=== PATIENT | male | born 1975 | race Caucasian/White ===

== ENCOUNTER 2016-04-30 17:07 | Inpatient (IN) | payer OTHER ==
[~2016-04-30] VITALS: Ht 175.3 cm; Wt 91.0 kg
[2016-04-30] MEDS ORDERED: MoRPHine SULFATE 4 MG/ML 1 ML CARP\\VIAL IV STA ×2 (19:20→22:20)
[2016-04-30] MEDS ORDERED: SODIUM CHLORIDE 0.9% 1000ML 1,000 ML IV STA (19:20)
[2016-04-30] MEDS ORDERED: VANCOMYCIN INJ 2,200 MG in SODIUM CHLORIDE 0.9% 500ML 500 ML IV STA (19:20)
[2016-04-30] MEDS ORDERED: ONDANSETRON INJ 2 MG/ML 2 ML VIAL IV STA (19:20)
[2016-04-30] MEDS ORDERED: IBUP-1050 PO (19:28)
[2016-04-30 20:19] LABS: BASO % 0.3 %; BASO ABS # 0.03 K/uL (0-0.2); COMPLETE YES; EOS % 2.2 %; IG% 0.1 %; LYMPH % 13.3 %; LYMPH ABS # 1.42 K/uL (1.2-3.4); MEAN CELL VOLUME 82.6 fL (80-100); MEAN CORPUSCULAR HEMOGLOBIN 29.9 pg (25-34); MEAN CORPUSCULAR HGB CONC 36.2 g/dl (32-36); MEAN PLATELET VOLUME 10.3 fL (7.4-10.4); MONO % 6.4 %; NEUT % 77.7 %; PLATELET COUNT 318 K/uL (130-400); RED BLOOD COUNT 4.72 M/uL (4.7-6.1); WHITE BLOOD COUNT 10.67 K/uL (4.8-10.8)
--- NOTE | 2016-04-30 20:19 | DIAGNOSTIC IMAGING REPORT ---
LEFT FOOT MIN 3 VIEWS ROUTINE CLINICAL HISTORY: pain/swelling/redness COMPARISON: None. DISCUSSION: No fractures or dislocations are visualized. There are no erosive or destructive changes. There is pronounced dorsal soft tissue swelling IMPRESSION: Pronounced dorsal soft tissue swelling. No evidence of fracture. No destructive lesions are visualized. Electronically signed by: Arun Dorsey M.D. 04/30/2016 8:17 PM Dictated Date/Time: 04/30/2016 8:17 PM
[2016-04-30 20:27] LABS: PARTIAL THROMBOPLASTIN RATIO 1.2
[2016-04-30 20:34] LABS: C-REACTIVE PROTEIN 11.1 mg/dl (0-0.29); CALCIUM 8.6 mg/dl (8.5-10.1); CREATININE 1.1 mg/dl (0.60-1.40); MAGNESIUM 2.1 mg/dl (1.8-2.4); POTASSIUM 4.1 mmol/L (3.5-5.1)
[2016-04-30 20:37] LABS: ALB/GLOB RATIO 0.7 (0.9-2)
--- NOTE | 2016-04-30 22:01 | DIAGNOSTIC IMAGING REPORT ---
ULTRASOUND VENOUS DOPPLER ULTRASOUND LEFT LOWER EXTREMITY CLINICAL HISTORY: Left leg pain and swelling ] REDNESS COMPARISON STUDY: No previous studies for comparison. FINDINGS: Real-time and color flow Doppler imaging were performed. Flow was seen within the femoral, popliteal and calf veins with no intraluminal thrombus demonstrated. The saphenous vein is patent. There are multiple left inguinal lymph nodes visualized, likely reactive. IMPRESSION: No evidence of left lower extremity DVT Electronically signed by: Arun Dorsey M.D. 04/30/2016 10:00 PM Dictated Date/Time: 04/30/2016 9:58 PM
[2016-04-30] MEDS ORDERED: ACETAMINOPHEN 325 MG TAB PO PRN (23:00)
[2016-04-30] MEDS ORDERED: MoRPHine SULFATE 2 MG/ML CARP IV PRN (23:00)
[2016-04-30] MEDS ORDERED: ONDANSETRON INJ 2 MG/ML 2 ML VIAL IV PRN (23:00)
[2016-04-30] MEDS ORDERED: POLYETHYLENE (MIRALAX) 17 GM PACK PO PRN (23:00)
[2016-05-01] VITALS (11 sets, daily range): BP systolic 127–168; BP diastolic 70–109; PULSE 58–72; TEMP 36.3–37.2; O2SAT 95–100; Ht 175.3 cm; Wt 91.0 kg
--- NOTE | 2016-05-01 00:39 | EMERGENCY ROOM VISIT NOTE ---
ED Visit Note First contact with patient: 18:55 40-year-old male with swelling of his left foot was fully evaluated by Charly Schumacher PA-C. Please see his note. I also independently evaluated the patient. The patient has marked swelling. He does not have significant elevation of his white count. The patient was started on IV antibiotics. I discussed care with the patient and with the hospitalist. The patient will require further evaluation in the hospital with surgical consultation.
[2016-05-01] MEDS: SODIUM CHLORIDE 0.9% 1000ML 1,000 ML IV SCH ×2 (00:52→11:44)
[2016-05-01] MEDS ORDERED: MoRPHine SULFATE 4 MG/ML 1 ML CARP\\VIAL IV PRN ×2 (00:58→02:45)
[2016-05-01] MEDS ORDERED: PIPERACILL/TAZOBAC IV 3.375 GM in DEXTROSE 5% 100ML 100 ML IV SCH (01:00)
[2016-05-01] MEDS ORDERED: VANCOMYCIN CONSULT ACTIVE PRN (01:04)
[2016-05-01] MEDS ORDERED: PIPERACILL/TAZOBAC IV 3.375 GM in DEXTROSE 5% 100ML IV SCH (01:15)
[2016-05-01] MEDS ORDERED: PIPERACILL/TAZOBAC CONSULT ACTIVE PRN (01:15)
--- NOTE | 2016-05-01 01:16 | History and Physical ---
History & Physical Date & Time of Service: Apr 30, 2016 at 23:01 Chief Complaint: Black Top Of Left Foot, Foot Injury, Burning Primary Care Physician: Billy Marks M.D. 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 He states there was pain but it wasn't until 10 days later he noticed the pain start to increase with swelling. For the last 10 days his pain and swelling has become extreme and feels to him as though his skin is going to burst. He reports some numbness in his toes for the past 10 days along with redness to the mid calf and even some numbness in his upper thigh intermittently. He has been ambulating with a CAM boot of his son's that he had lying around the house. He does report chills, however, no fevers, chest pain, shortness of breath, headaches, visual changes, nausea, vomiting, diarrhea , or any other symptom at this time. In the ER he received Vancomycin and Morphine as well as some IVF. He was feeling better after the morphine. He reports only OTC Advil use at home for pain. Past Medical/Surgical History No medical problems. Family History No family medical problems reported. 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 Physical Exam Vital Signs Date Time Temp Pulse Resp B/P Pulse Ox O2 Delivery O2 Flow Rate FiO2 04/30/16 22:08 82 18 167/92 97 Room Air 04/30/16 20:21 76 18 141/98 04/30/16 17:09 37.6 92 18 161/104 97 Room Air GEN: WNWD, in slight distress, alert and appropriate HEENT: NC/AT, PERRL, normal sclerae CARDIO: reg rate, S1/2 heard without m/g/r LUNGS: CTA bilaterally, no crackles, rales or wheezes, good diaphragmatic excursion ABD: soft, non-tender, non-distended, no rebound or guarding EXTREMITY: RP and DP palpable 2+ bilat, no LE swelling or edema, extremities are warm and well-perfused LLE: significant swelling present with dorsal focus that is closed but appears possibly fluctuant. This is surrounded by significant redness and desquamation of the tissues. The erythema extends up to the mid-calf and is exquisitely sensitive so exam is limited. I can detect a dorsal pedal pulse with light touch. Sensation is intact. Skin is tense/ tight. Cannot move toes. Can bear weight on LE with CAM boot. LE is very warm to the touch. NEURO: CN 2-12 grossly intact, sensation intact throughout MUSC: 5/5 strength throughout, no focal deficits SKIN: warm and dry and as above. Diagnostics Laboratory Results Results Past 24 Hours Test 04/30/16 20:00 04/30/16 21:22 Range/Units White Blood Count 10.67 4.8-10.8 K/uL Red Blood Count 4.72 4.7-6.1 M/uL Hemoglobin 14.1 14.0-18.0 g/dL Hematocrit 39.0 42-52 % Mean Corpuscular Volume 82.6 80-100 fL Mean Corpuscular Hemoglobin 29.9 25-34 pg Mean Corpuscular Hemoglobin Concent 36.2 32-36 g/dl Platelet Count 318 130-400 K/uL Mean Platelet Volume 10.3 7.4-10.4 fL Neutrophils (%) (Auto) 77.7 % Lymphocytes (%) (Auto) 13.3 % Monocytes (%) (Auto) 6.4 % Eosinophils (%) (Auto) 2.2 % Basophils (%) (Auto) 0.3 % Neutrophils # (Auto) 8.29 1.4-6.5 K/uL Lymphocytes # (Auto) 1.42 1.2-3.4 K/uL Monocytes # (Auto) 0.68 0.11-0.59 K/uL Eosinophils # (Auto) 0.24 0-0.5 K/uL Basophils # (Auto) 0.03 0-0.2 K/uL RDW Standard Deviation 35.7 36.4-46.3 fL RDW Coefficient of Variation 11.8 11.5-14.5 % Immature Granulocyte % (Auto) 0.1 % Immature Granulocyte # (Auto) 0.01 0.00-0.02 K/uL Prothrombin Time 11.0 9.0-12.0 SECONDS Prothromb Time International Ratio 1.0 0.9-1.1 Activated Partial Thromboplast Time 31.3 21.0-31.0 SECONDS Partial Thromboplastin Ratio 1.2 Sodium Level 132 136-145 mmol/L Potassium Level 4.1 3.5-5.1 mmol/L Chloride Level 95 98-107 mmol/L Carbon Dioxide Level 30 21-32 mmol/L Anion Gap 7.0 3-11 mmol/L Blood Urea Nitrogen 7 7-18 mg/dl Creatinine 1.10 0.60-1.40 mg/dl Est Creatinine Clear Calc Drug Dose 100.8 ml/min Estimated GFR () 98.2 Estimated GFR (Non- 84.7 BUN/Creatinine Ratio 6.0 10-20 Random Glucose 96 70-99 mg/dl Calcium Level 8.6 8.5-10.1 mg/dl Magnesium Level 2.1 1.8-2.4 mg/dl Total Bilirubin 0.3 0.2-1 mg/dl Aspartate Amino Transf (AST/SGOT) 23 15-37 U/L Alanine Aminotransferase (ALT/SGPT) 20 12-78 U/L Alkaline Phosphatase 77 45-117 U/L C-Reactive Protein 11.10 0-0.29 mg/dl Total Protein 8.1 6.4-8.2 gm/dl Albumin 3.3 3.4-5.0 gm/dl Globulin 4.8 2.5-4.0 gm/dl Albumin/Globulin Ratio 0.7 0.9-2 Bedside Lactic Acid Venous 1.82 0.90-1.70 mmol/L Microbiology Results 04/30/16 Blood Culture, Received Pending 04/30/16 Blood Culture, Christina Batch Pending Diagnostic Radiology CXR-preliminary read is normal . CXR normal Impression Assessment and Plan 40 yoM with trauma to L foot 3 weeks ago with subsequent LLE infection 1. LLE cellulitis-severe swelling and pain with erythema and systemic symptoms of chills. Possible sepsis present, blood cultures are pending. Vanc started in ER, added Zosyn for pseudomonal coverage. Morphine for pain control. Dr. Brown and I discussed consulting Ortho, and agreed that an urgent call need not be placed overnight, however, should be placed first thing in the morning as the patient has had this as an ongoing process for 3 weeks now, the WBC was not significantly elevated, and there was no gas or evidence of fracture or osteo on the foot xray. Do not believe compartment syndrome is present as calf muscles are malleable and not very tender, and DP pulses are detectable. IVF overnight with close monitoring on telemetry and will contact Ortho in the morning. Of note, patient states that he did have a tetanus shot within the last year. 2. Isolated Elevated BP- 2/2 pain, improved with morphine DVT proph-held 2/2 poss upcoming procedure Nutrition-reg diet Full Code Jazzy Yanez DO [facility] Hospitalist. Level of Care Telemetry Resuscitation Status FULL RESUSCITATION VTE Prophylaxis VTE Risk Assessment Done? Y/N: Yes Risk Level: Moderate Given or contraindicated: Treatment not indicated (possible procedure) Social Service Consult None Apply
--- NOTE | 2016-05-01 01:31 | Progress Note ---
Progress Note Post Crystalloid Evaluation Date: Apr 30, 2016 Time: 23:00 Subjective 40 yoM with LLE cellulitis after trauma to his L foot 3 weeks ago. Experiencing intense pain and swelling over the past 10 days. Physical Exam Vital Signs: Vital Signs Date Time Temp Pulse Resp B/P Pulse Ox O2 Delivery O2 Flow Rate FiO2 04/30/16 22:08 82 18 167/92 97 Room Air 04/30/16 17:09 37.6 Lungs: lungs clear, normal breath sounds, no respiratory distress, no accessory muscle use Heart: regular rate, rhythm, no edema, no gallop, no murmur, normal peripheral pulses Assessment & Plan LLE Cellulitis: -foot xray reveals no fractures, dislocations or gas on xray. No evidence of osteo on xray. -LE us is negative for DVT -broad spectrum abx including Vanc and Zosyn -Blood cultures pending -IVF overnight -Ortho consult in am for source control -trend ESR and CRP -monitor on tele overnight. Jazzy Yanez DO Hospitalist
[2016-05-01] MEDS ORDERED: HYDROmorphone INJ 0.5 MG/0.5 ML SYR ONE (04:24)
[2016-05-01] MEDS ORDERED: HYDROmorphone INJ 0.5 MG/0.5 ML SYR IV STA ×2 (04:27→12:05)
[2016-05-01] MEDS ORDERED: NURSING VERBAL MED ORDER ONE ×2 (04:30→06:30)
[2016-05-01] MEDS: PIPERACILL/TAZOBAC IV 3.375 GM in DEXTROSE 5% 100ML IV SCH ×3 (05:56→22:15)
--- NOTE | 2016-05-01 06:09 | Pharmacy Progress Note ---
Pharmacy Antibiotic Consult Date of Service: May 01, 2016. Pharmacy Dosing Scope * Pharmacy is consulted to initiate Vancomycin IV dosing therapy, order appropriate labs and adjust drug dose/frequency. Subjective * The patient is a 40 year old male admitted on Apr 30, 2016 at 23:00 for left foot cellulitis. S/P injury to foot ~ 10 days ago. Objective Height (Feet): 5 Height (Inches): 9.00 Weight (Kilograms): 91.000 Lab Results (24hrs): Laboratory Tests Test 04/30/16 20:00 05/01/16 04:44 BUN/Creatinine Ratio 6.0 Blood Urea Nitrogen 7 mg/dl Creatinine 1.10 mg/dl White Blood Count 10.67 K/uL Red Blood Count 4.72 M/uL Hemoglobin 14.1 g/dL Hematocrit 39.0 % Mean Corpuscular Volume 82.6 fL Mean Corpuscular Hemoglobin 29.9 pg Mean Corpuscular Hemoglobin Concent 36.2 g/dl Platelet Count 318 K/uL Mean Platelet Volume 10.3 fL Neutrophils (%) (Auto) 77.7 % Lymphocytes (%) (Auto) 13.3 % Monocytes (%) (Auto) 6.4 % Eosinophils (%) (Auto) 2.2 % Basophils (%) (Auto) 0.3 % Neutrophils # (Auto) 8.29 K/uL Lymphocytes # (Auto) 1.42 K/uL Monocytes # (Auto) 0.68 K/uL Eosinophils # (Auto) 0.24 K/uL Basophils # (Auto) 0.03 K/uL Micro Results: * Blood cultures are pending Recent Pertinent Medications * Patient is also receiving Zosyn 3.375gm IV every 8 hours (extended interval). Assessment & Plan Loading dose: 2200mg IV (~ 24.6mg/kg) X 1 dose then 1300mg (~14.5mg/kg) IV every 10 hours. Goal trough level estimate: between 15-20 mcg/mL. Trough level is ordered for 05/02/16 at 0300. Pharmacy will continue to follow and will adjust dose/frequency as necessary. Thank you
--- NOTE | 2016-05-01 06:38 | DIAGNOSTIC IMAGING REPORT ---
CHEST ONE VIEW PORTABLE CLINICAL HISTORY: sepsis, rule out other etiology dyspnea COMPARISON STUDY: No previous studies for comparison. FINDINGS: The bones soft tissues and hemidiaphragms are normal. The cardiomediastinal silhouette is normal. The lungs are clear. The pulmonary vasculature is normal. IMPRESSION: Negative chest. Electronically signed by: Sea Johnson M.D. 05/01/2016 6:37 AM Dictated Date/Time: 05/01/2016 6:37 AM
[2016-05-01] MEDS: HYDROmorphone INJ 0.5 MG/0.5 ML SYR IV PRN ×3 (07:18→11:44)
[2016-05-01] MEDS: VANCOMYCIN INJ 1,300 MG in SODIUM CHLORIDE 0.9% 250ML 250 ML IV SCH ×2 (07:23→18:25)
[2016-05-01 07:33] LABS: BASO % 0.2 %; BASO ABS # 0.02 K/uL (0-0.2); COMPLETE YES; EOS % 2.9 %; HEMATOCRIT 35.2 % (42-52); IG% 0.2 %; LYMPH % 23.1 %; LYMPH ABS # 1.94 K/uL (1.2-3.4); MEAN CELL VOLUME 82.2 fL (80-100); MEAN CORPUSCULAR HEMOGLOBIN 29.4 pg (25-34); MEAN CORPUSCULAR HGB CONC 35.8 g/dl (32-36); MEAN PLATELET VOLUME 10.4 fL (7.4-10.4); MONO % 8.5 %; NEUT % 65.1 %; PLATELET COUNT 243 K/uL (130-400); RED BLOOD COUNT 4.28 M/uL (4.7-6.1); WHITE BLOOD COUNT 8.39 K/uL (4.8-10.8)
[2016-05-01 07:41] LABS: BUN/CREATININE RATIO 6.4 (10-20); C-REACTIVE PROTEIN 8.54 mg/dl (0-0.29); CALCIUM 8.5 mg/dl (8.5-10.1); CREATININE 0.88 mg/dl (0.60-1.40); MAGNESIUM 2.1 mg/dl (1.8-2.4); POTASSIUM 3.9 mmol/L (3.5-5.1)
[2016-05-01] MEDS ORDERED: KETOROLAC TROMETHAMINE 30 MG/ML VIAL IV ONE (08:30)
[2016-05-01] MEDS ORDERED: ENOXAPARIN 40 MG/0.4 ML SYR SC SCH (09:00)
--- NOTE | 2016-05-01 09:37 | ORTHOPEDIC PROGRESS NOTE ---
DATE: 05/01/2016 HISTORY OF PRESENT ILLNESS: The patient is a 40-year-old white male who we have been asked to see for left foot swelling and questionable infection. 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 He had pain in the foot off and on at the time of the injury and as days went by he got a little bit better. He said it would come and go and then by later portion of last week he began noticing increased swelling of that area and pain. He had been wearing his son's Cam Walker Boot to help alleviate some of the discomfort, which was helping somewhat. As time progressed, he was able to put less weight on the left lower extremity and by Wednesday of this week it was fairly swollen and painful. He was really only using Advil for pain control and noted numbness in his toes that had been apparently going on for now for at least a week or longer. He got to the point where the pain was just too much and he was not able to cope with ambulating and the pain and he came into the Emergency Room. He denies any fevers, chills, night sweats, no shortness of breath and no nausea or vomiting. OBJECTIVE: On viewing his left foot, he has moderate redness and swelling over the dorsum of the foot itself. There is an area over the lateral aspect of the foot over the left fourth and fifth metatarsals that is somewhat darkened compared to the others and it almost appears like a small amount of eschar, but no open wounds on the foot itself which the patient states he has not had any draining. He has swelling and darkened erythema across the whole dorsum of the foot. The erythema goes down to the toes and essentially stops at the toes. He is unable to move his second through fifth toes at this time and due to pain and he states that those toes are also numb. He does have feeling in the great toe and is able to move the great toe quite well. Any passive extension of the second through fifth toes causes pain in the dorsum of the foot. Palpation of the dorsalis pedis is difficult because of the amount of pain the patient is having, but I can feel a slight dorsalis pedis noted. Capillary refill is less than 2 seconds in all of his toes at this time. He has no pain on the plantar surface of his foot at this time and has decent sensation. He is able to move the ankle but is tender causing pain in the dorsum of his foot. He does have some pain over the anterior ankle with some noted erythema that has gone up to the ankle just slightly above. On mild palpation over that lateral aspect he does have some fluctuance noted, but his tenderness is quite exquisite at this point in time and deep palpation I am unable to do. ASSESSMENT: Abscess versus worsening hematoma of the left foot status post crush injury. PLAN: At this point in time, I have discussed the case with Dr. Ken who received the call about this patient earlier this morning and I also discussed the case with Dr. Gonzalez who will be taking over his care for the medicine service. We will order an MRI which will be done later this morning. We will make him n.p.o. He will likely need a decompression of this area depending on the results of his MRI. For now we will definitely keep him elevated at this point in time. He has been ordered pain medication by medicine service and will give him a 1 time dose of Toradol to continue to help with his pain control.
--- NOTE | 2016-05-01 11:40 | DIAGNOSTIC IMAGING REPORT ---
LEFT FOOT MRI HISTORY: Left foot pain and swelling. r/o abscess left foot TECHNIQUE: Multiplanar multisequence MRI of the left foot was performed without the use of contrast. COMPARISON STUDY: Left foot 04/30/2016. FINDINGS: There is a normal marrow signal intensity within the visualized osseous structures of the foot. No fracture or dislocation. No cortical destruction to suggest osteomyelitis. There is subcutaneous edema and skin thickening along the dorsum of the foot extending into the toes. There is also a multiloculated fluid collection along the dorsum of the foot which involves both the subcutaneous and deep soft tissues. This surrounds the majority of the extensor digitorum tendons. This extends from the level of the ankle joint to the level of the heads of the metatarsals. This measures 10 cm in length, 5 cm in width, and 2.5 cm in height. The fluid tracks proximally in the tendon sheaths of the extensor digitorum up into the level of the ankle. The fluid collection is not entirely included on this study. IMPRESSION: 1. A 10 x 5 x 2.5 cm multiloculated fluid collection within the dorsum of the foot with involvement of both the superficial and deep soft tissue components. This surrounds the majority of the extensor digitorum tendons and extends proximally into the tendon sheaths up into the level of the ankle. The proximal component of the fluid collection is not entirely included on this study. This could represent an abscess or hematoma. 2. There is dorsal subcutaneous edema and skin thickening throughout the majority of the foot. 3. No fracture, dislocation, or evidence for osteomyelitis within the foot. Electronically signed by: Pierce Conde M.D. 05/01/2016 11:38 AM Dictated Date/Time: 05/01/2016 11:31 AM
[2016-05-01] MEDS ORDERED: PROPOFOL IV EMULSION 10 MG/ML 20 ML VIAL IV ONE (14:57)
[2016-05-01] MEDS ORDERED: ONDANSETRON INJ 2 MG/ML 2 ML VIAL ONE (14:57)
[2016-05-01] MEDS ORDERED: SUCCINYLCHOLINE CHLORIDE 20 MG/ML 10 ML VIAL IV ONE (14:57)
[2016-05-01] MEDS ORDERED: LIDOCAINE HCL 2% 2 ML VIAL (20MG/ML) ONE (14:57)
[2016-05-01] MEDS ORDERED: PHENYLEPHRINE HCL INJ 10 MG/ML VIAL ONE (14:57)
[2016-05-01] MEDS ORDERED: DEXAMETHASONE SOD INJ 4 MG/ML VIAL ONE (14:57)
[2016-05-01] MEDS ORDERED: ROCURONIUM BROMIDE 10 MG/ML 5 ML VIAL ONE (14:57)
[2016-05-01] MEDS ORDERED: NEOSTIGMINE METHYLSULFATE 5 MG/5 ML SYR ONE (14:57)
[2016-05-01] MEDS ORDERED: EpHEDrine SULFATE INJ 50 MG/ML AMP ONE (14:57)
[2016-05-01] MEDS ORDERED: GLYCOPYRROLATE INJ 0.2 MG/ML VIAL ONE (14:57)
[2016-05-01] MEDS ORDERED: FENTANYL CITRATE INJ 50 MCG/1 ML 2 ML VIAL ONE ×3 (14:58→17:15)
[2016-05-01] MEDS ORDERED: MIDAZOLAM HCL 1 MG/ML 2ML VIAL ONE (14:58)
[2016-05-01] MEDS ORDERED: BACITRACIN 50000 UNIT VIAL ONE (16:00)
[2016-05-01] MEDS ORDERED: BUPIVACAINE 0.5 % 5 MG/1 ML MPF 30ML VIAL ONE (16:00)
--- NOTE | 2016-05-01 16:44 | History & Physical Bridge Note ---
H&P Re-Evaluation Bridge Note: I have examined the patient, reviewed the History & Physical and in the interval since the performance of the History & Physical I have noted the following changes of clinical significance: No changes noted
--- NOTE | 2016-05-01 16:46 | Progress Note ---
Subjective Date of Service: May 01, 2016. Subjective Pt evaluation today including: conversation w/ patient, physical exam, lab review, review of studies, review of inpatient medication list Saw/examined the patient in room 287 States his pain has not been controlled with medications left foot is swelling, erythematous, darkened c/o numbness/tingling, and pain at the top of his foot Review of Systems Constitutional: No chills, No fever Respiratory: No cough, No dyspnea on exertion, No shortness of breath, No sputum, No wheezing Cardiac: No chest pain, No edema, No palpitations Musculoskeletal: + joint pain (left foot), + muscle pain, + swelling, No calf pain Neurologic: + numbness/tingling (distal toes on the left) Medications Current Inpatient Medications Medications (Trade) Dose Ordered Sig/Prieto Route Start Time Stop Time Status Last Admin Dose Admin Acetaminophen (Tylenol Tab) 650 mg Q4H PRN PO 04/30/16 23:00 05/30/16 22:59 Ondansetron HCl (Zofran Inj) 4 mg Q6H PRN IV 04/30/16 23:00 05/30/16 22:59 Polyethylene (Miralax Powder Packet) 17 gm DAILY PRN PO 04/30/16 23:00 05/30/16 22:59 Vancomycin HCl 1 ea 1 ea DAILY PRN N/A 05/01/16 01:04 05/31/16 01:03 Piperacillin Sod/ Tazobactam Sod/ Dextrose (Zosyn Iv/D5 100ml) 115 ml @ 28.75 mls/ hr Q8H IV 05/01/16 06:00 05/11/16 05:59 05/01/16 14:30 28.75 MLS/HR Piperacillin Sod/ Tazobactam Sod 1 ea 1 ea UD PRN N/A 05/01/16 01:15 05/31/16 01:14 Vancomycin HCl/ Sodium Chloride (Vancomycin Inj/ Nss 250ml) 276 ml @ 125 mls/hr Q10H IV 05/01/16 07:30 05/11/16 07:29 05/01/16 07:23 125 MLS/HR Hydromorphone HCl (Dilaudid Inj) 1 mg Q2H PRN IV 05/01/16 12:45 05/15/16 12:44 Objective Vital Signs Date Time Temp Pulse Resp B/P Pulse Ox O2 Delivery O2 Flow Rate FiO2 05/01/16 16:00 Room Air 05/01/16 15:22 36.6 67 18 144/85 98 Room Air 05/01/16 08:00 Room Air 05/01/16 07:44 36.7 58 16 127/76 98 Room Air 05/01/16 04:00 Room Air 05/01/16 04:00 37.0 62 20 134/76 95 Room Air 05/01/16 00:46 37.2 71 18 147/82 96 Room Air 04/30/16 23:55 37.5 77 134/78 95 04/30/16 22:08 82 18 167/92 97 Room Air 04/30/16 20:21 76 18 141/98 04/30/16 17:09 37.6 92 18 161/104 97 Room Air Physical Exam General Appearance: no apparent distress Respiratory/Chest: chest non-tender, lungs clear, normal breath sounds, no respiratory distress, no accessory muscle use Cardiovascular: regular rate, rhythm, no edema, no murmur Abdomen: normal bowel sounds, non tender, soft Extremities: + swelling (dorsum of left foot, with erythema, underlying darkened ecchymosis; opening of skin at the dorsum with erythema to the upper ankle), + pertinent finding Neurologic/Psychiatric: no motor/sensory deficits, alert, normal mood/affect Laboratory Results Last 24 Hours Test 04/30/16 20:00 04/30/16 21:22 05/01/16 06:59 05/01/16 08:17 White Blood Count 10.67 K/uL 8.39 K/uL Red Blood Count 4.72 M/uL 4.28 M/uL Hemoglobin 14.1 g/dL 12.6 g/dL Hematocrit 39.0 % 35.2 % Mean Corpuscular Volume 82.6 fL 82.2 fL Mean Corpuscular Hemoglobin 29.9 pg 29.4 pg Mean Corpuscular Hemoglobin Concent 36.2 g/dl 35.8 g/dl Platelet Count 318 K/uL 243 K/uL Mean Platelet Volume 10.3 fL 10.4 fL Neutrophils (%) (Auto) 77.7 % 65.1 % Lymphocytes (%) (Auto) 13.3 % 23.1 % Monocytes (%) (Auto) 6.4 % 8.5 % Eosinophils (%) (Auto) 2.2 % 2.9 % Basophils (%) (Auto) 0.3 % 0.2 % Neutrophils # (Auto) 8.29 K/uL 5.46 K/uL Lymphocytes # (Auto) 1.42 K/uL 1.94 K/uL Monocytes # (Auto) 0.68 K/uL 0.71 K/uL Eosinophils # (Auto) 0.24 K/uL 0.24 K/uL Basophils # (Auto) 0.03 K/uL 0.02 K/uL RDW Standard Deviation 35.7 fL 36.1 fL RDW Coefficient of Variation 11.8 % 12.0 % Immature Granulocyte % (Auto) 0.1 % 0.2 % Immature Granulocyte # (Auto) 0.01 K/uL 0.02 K/uL Prothrombin Time 11.0 SECONDS Prothromb Time International Ratio 1.0 Activated Partial Thromboplast Time 31.3 SECONDS Partial Thromboplastin Ratio 1.2 Sodium Level 132 mmol/L 136 mmol/L Potassium Level 4.1 mmol/L 3.9 mmol/L Chloride Level 95 mmol/L 104 mmol/L Carbon Dioxide Level 30 mmol/L 25 mmol/L Anion Gap 7.0 mmol/L 7.0 mmol/L Blood Urea Nitrogen 7 mg/dl 6 mg/dl Creatinine 1.10 mg/dl 0.88 mg/dl Est Creatinine Clear Calc Drug Dose 100.8 ml/min 126.9 ml/min Estimated GFR () 98.2 126.3 Estimated GFR (Non- 84.7 109.0 BUN/Creatinine Ratio 6.0 6.4 Random Glucose 96 mg/dl 103 mg/dl Calcium Level 8.6 mg/dl 8.5 mg/dl Magnesium Level 2.1 mg/dl 2.1 mg/dl Total Bilirubin 0.3 mg/dl Aspartate Amino Transf (AST/SGOT) 23 U/L Alanine Aminotransferase (ALT/SGPT) 20 U/L Alkaline Phosphatase 77 U/L C-Reactive Protein 11.10 mg/dl 8.54 mg/dl Total Protein 8.1 gm/dl Albumin 3.3 gm/dl Globulin 4.8 gm/dl Albumin/Globulin Ratio 0.7 Bedside Lactic Acid Venous 1.82 mmol/L Erythrocyte Sedimentation Rate 24 mm/hr Assessment and Plan This is a 40 year old male presents after traumatic left foot injury Traumatic Left Foot Injury/Cellulitis and Abscess Collection left foot swollen, erythematous started on IV Zosyn and IV Vanco, will continue this today appreciate ortho input Left Foot MRI shows fluid collection/abscess No osteomyelitis noted Plan is for the patient to have this drained in the OR by ortho IV Dilaudid increased in dose due to the pain ID consultation may be beneficial after the surgery FULL CODE
[2016-05-01] MEDS ORDERED: KETOROLAC TROMETHAMINE 30 MG/ML VIAL ONE (17:14)
--- NOTE | 2016-05-01 17:37 | [facility] Post Operative Brief Note ---
Immediate Operative Summary Operative Date May 01, 2016. Pre-Operative Diagnosis left foot abscess Post-Operative Diagnosis same Procedure(s) Performed I and D abscess Surgeon ana Tool Repairer Surgeon(s) no Estimated Blood Loss 0 Findings LARGE ABSCESS Specimens CULTURES Drains no Anesthesia gen Complication(s) None Disposition Recovery Room / PACU
--- NOTE | 2016-05-01 17:40 | Anesthesiology Progress Note ---
Anesthesia Post Op Note Date & Time May 01, 2016 at 17:40 Vital Signs Vital Signs Past 12 Hours Date Time Temp Pulse Resp B/P Pulse Ox O2 Delivery O2 Flow Rate FiO2 05/01/16 16:00 Room Air 05/01/16 15:22 36.6 67 18 144/85 98 Room Air 05/01/16 08:00 Room Air 05/01/16 07:44 36.7 58 16 127/76 98 Room Air Notes Mental Status: alert / awake / arousable, participated in evaluation Pt Amnestic to Procedure: Yes Nausea / Vomiting: adequately controlled Pain: adequately controlled Airway Patency, RR, SpO2: stable & adequate BP & HR: stable & adequate Hydration State: stable & adequate Anesthetic Complications: no major complications apparent
[2016-05-01] MEDS: HYDROmorphone INJ 1 MG/ML SYR IV PRN ×10 (17:41→23:36)
[2016-05-01] MEDS ORDERED: FLUMAZENIL 0.1 MG/1 ML 10 ML VIAL IV PRN (17:45)
[2016-05-01] MEDS ORDERED: ATROPINE SULFATE 0.1 MG/ML 5ML SYR IV PRN (17:45)
[2016-05-01] MEDS ORDERED: NALOXONE HCL 0.4 MG/1 ML VIAL/CARP IV PRN (17:45)
[2016-05-01] MEDS ORDERED: PROMETHAZINE HCL INJ 12.5 MG in SODIUM CHLORIDE 0.9% 50ML 50 ML IV PRN (17:45)
[2016-05-01] MEDS ORDERED: LABETALOL HCL IV 5 MG/ML 20ML IV PRN (17:45)
[2016-05-01] MEDS ORDERED: EpHEDrine SULFATE INJ 50 MG/ML AMP IV PRN (17:45)
[2016-05-01] MEDS ORDERED: ONDANSETRON INJ 2 MG/ML 2 ML VIAL IV PRN (17:45)
--- NOTE | 2016-05-01 17:54 | OPERATIVE REPORT ---
DATE OF OPERATION: 05/01/2016 PREOPERATIVE DIAGNOSIS: Left foot abscess. POSTOPERATIVE DIAGNOSIS: Same. PROCEDURE: Left foot I\T\D abscess, subfascial. SURGEON: Dr. Buchanan. GRANITE POLISHER: None. ANESTHESIA: General. INDICATIONS: This is a 40-year-old gentleman who states he had dropped a heavy object on his foot. He notes progressive pain, swelling, fever and chills. MRI documents fluid collection in the dorsal foot. The risks and benefits have been discussed including, but not limited to, risk of infection, nerve injury, stiffness, loss of motion, failure to improve, etc.? The patient is agreeable and wishes to proceed. I saw the patient in the preoperative holding area we discussed risks, benefits, reasonable outcomes, etc. He is agreeable and wishes to proceed. DESCRIPTION OF PROCEDURE: The patient had a fluctuant area on the dorsal aspect of the foot which was fairly large. I made a longitudinal incision directly over the area. Dissection was carried down through the skin and subcutaneous tissues. A large amount of pus was encountered consistent with abscess. Cultures were taken. This was drained. I performed the irrigation and debridement of abscess. Abscess was deep and surrounding the extensor tendons to the toes. I debrided the area of skin, subcutaneous tissue and bone with a scalpel, curette and scissors. The area was approximately 3 x 3 cm. The area was copiously irrigated with 3 liters of normal saline. The incision was loosely closed with milena and packing was applied in the central aspect. The patient was placed in a soft dressing and sent to the PACU in stable condition. I attest to the content of the Intraoperative Record and any orders documented therein. Any exceptio ns are noted below.
[2016-05-02] MEDS ORDERED: VANCOMYCIN TROUGH SCH (03:00)
[2016-05-02] MEDS: HYDROmorphone INJ 1 MG/ML SYR IV PRN ×7 (03:14→20:23)
[2016-05-02 04:12] VITALS: BP 138/76; PULSE 69; TEMP 36.9; O2SAT 98
[2016-05-02] MEDS: VANCOMYCIN INJ 1,300 MG in SODIUM CHLORIDE 0.9% 250ML 250 ML IV SCH (04:33)
[2016-05-02] MEDS: PIPERACILL/TAZOBAC IV 3.375 GM in DEXTROSE 5% 100ML IV SCH ×2 (05:55→16:36)
[2016-05-02 08:07] VITALS: BP 130/84; PULSE 67; TEMP 36.8; O2SAT 98
[2016-05-02 08:17] LABS: HEMATOCRIT 34.9 % (42-52); MEAN CELL VOLUME 83.1 fL (80-100); MEAN CORPUSCULAR HEMOGLOBIN 28.6 pg (25-34); MEAN CORPUSCULAR HGB CONC 34.4 g/dl (32-36); MEAN PLATELET VOLUME 10.2 fL (7.4-10.4); PLATELET COUNT 271 K/uL (130-400); WHITE BLOOD COUNT 7.98 K/uL (4.8-10.8)
--- NOTE | 2016-05-02 08:32 | Pharmacy Progress Note ---
Pharmacy Antibiotic Prog Note Date of Service: May 02, 2016. Subjective: The patient is currently receiving Vancomycin 1300 mg IV every 10 hours. The patient is currently on day # 3 of IV therapy. Objective: Height (Feet): 5 Height (Inches): 9.00 Weight (Kilograms): 91.000 Levels: Item Value Date Time Vancomycin Level Trough 10.4 mcg/ml 05/02/16 0430 Lab Results (24hrs): Laboratory Tests Test 05/02/16 07:41 White Blood Count 7.98 K/uL Micro Results: Item Value Date Time Gram Stain Received 05/01/16 0000 Abscess Foot Left Pending Blood Culture - Preliminary Resulted 04/30/16 212 Blood NO GROWTH TO DATE. Blood Culture - Preliminary Resulted 04/30/16 2000 Blood NO GROWTH TO DATE. Recent Pertinent Medications: Item Value Date Time Piperacillin Sod/ 115 ml @ 230 mls/hr 05/01/16 0115 Tazobactam Sod TODAY@0115/IV 05/01/16 0141 3.375 gm/Dextrose Assessment & Plan: 40 yo M initiated on broad spectrum antibiotics for a traumatic left food injury /cellulitis and abscess collection. Vancomycin and Zosyn IV both continued at this time- blood cultures negative to date and foot/abscess culture pending. Vancomycin * This drug level is Subtherapeutic. * Our goal for cellulitis is ~15 mcg/mL. * Change to Vancomycin 1500 mg IV every 8 hours. * Recheck level 05/03/16 prior to the 1200 dose. Zosyn * Continue 3.375 g IV every 8 hours Pharmacy will continue to follow and will adjust dose/frequency as necessary. Thank youTraumatic Left Foot Injury/Cellulitis and Abscess Collection
[2016-05-02 08:51] LABS: BUN/CREATININE RATIO 5.9 (10-20); C-REACTIVE PROTEIN 6.57 mg/dl (0-0.29); CALCIUM 8.6 mg/dl (8.5-10.1); CREATININE 0.87 mg/dl (0.60-1.40); POTASSIUM 4.2 mmol/L (3.5-5.1)
--- NOTE | 2016-05-02 09:54 | PROGRESS NOTE ---
DATE: 05/02/2016 DATE: 05/02/2016. SUBJECTIVE: Anthony is seen at bedside today. He has complaint of appropriate amount of pain in the left lower extremity. OBJECTIVE: Left lower extremity examination he can flex and extend the ankle. Dressing is clean, dry and intact. Toes are warm and well perfused. Calf is soft. ASSESSMENT: Postop day 1 I\T\D large dorsal foot abscess. PLAN: I discussed treatment. At this point in time will continue the dressing. Remove the dressing and packing tomorrow. Continue intravenous antibiotics. We will continue to follow.
[2016-05-02] MEDS: VANCOMYCIN INJ 1,500 MG in SODIUM CHLORIDE 0.9% 500ML 500 ML IV SCH ×2 (13:41→20:21)
[2016-05-02 15:26] VITALS: BP 145/82; PULSE 76; TEMP 37.1; O2SAT 96
--- NOTE | 2016-05-02 19:34 | Progress Note ---
Internal Med Progress Note Date of Service: May 02, 2016. Provider Documentation: SUBJECTIVE: mentions the pain in left foot has improved able to bear wt going to rest room using a walker no fever or chills OBJECTIVE: Vital Signs-as noted below Exam: General-no sign of distress Eyes-sclera non icteric ENT-NAD Neck-no thyromegaly Lungs-CTA Heart-regular S1/S2 Abdomen-soft, non tender Extremities-left foot abscess s/o I&D , bandaged Neuro-no focal deficit Lab data as noted below. ASSESSMENT & PLAN: Traumatic Left Foot Injury/Cellulitis and Abscess Collection had a traumatic left foot injury approx 3 weeks back Left Foot MRI shows fluid collection/abscess No osteomyelitis noted no evidence of sepsis normal white count no fever or chills appreciate ortho input S/p I&D wound culture of left foot -gram positive cocci -isolation and sensitivity pending D.C IV Zosyn cont IV Vanco -pending sensitivity of culture report possible transition to Oral as sensitivity returns ID eval requested for recommendation for ABx and duration of therapy FULL CODE DVT PROPHYLAXIS scd and teds DISPOSITION: possible discharge home in next 24-48 hrs as culture report obtained pt will need close follow up with Family physician to assess healing of the wound pt is agreeable for home health visiting nurse to assist in wound care social service will be updated Vital Signs: Date Time Temp Pulse Resp B/P Pulse Ox O2 Delivery O2 Flow Rate FiO2 05/02/16 16:00 Room Air 05/02/16 15:26 37.1 76 18 145/82 96 Room Air 05/02/16 08:07 36.8 67 16 130/84 98 2.0 05/02/16 08:00 Room Air 05/02/16 04:12 36.9 69 16 138/76 98 Nasal Cannula 2.0 05/02/16 00:14 Room Air 05/01/16 23:50 142/70 Nasal Cannula 2.0 05/01/16 23:43 36.4 72 20 168/109 100 Room Air 05/01/16 21:02 37.0 68 18 138/72 98 Nasal Cannula 2.0 05/01/16 20:42 36.8 62 20 144/84 99 Room Air Lab Results: Results Past 24 Hours Test 05/02/16 04:30 05/02/16 07:41 Range/Units Vancomycin Level Trough 10.4 SEE COMMENT mcg/ml White Blood Count 7.98 4.8-10.8 K/uL Red Blood Count 4.20 4.7-6.1 M/uL Hemoglobin 12.0 14.0-18.0 g/dL Hematocrit 34.9 42-52 % Mean Corpuscular Volume 83.1 80-100 fL Mean Corpuscular Hemoglobin 28.6 25-34 pg Mean Corpuscular Hemoglobin Concent 34.4 32-36 g/dl RDW Standard Deviation 36.5 36.4-46.3 fL RDW Coefficient of Variation 11.9 11.5-14.5 % Platelet Count 271 130-400 K/uL Mean Platelet Volume 10.2 7.4-10.4 fL Erythrocyte Sedimentation Rate 5 0-14 mm/hr Sodium Level 137 136-145 mmol/L Potassium Level 4.2 3.5-5.1 mmol/L Chloride Level 102 98-107 mmol/L Carbon Dioxide Level 29 21-32 mmol/L Anion Gap 6.0 3-11 mmol/L Blood Urea Nitrogen 5 7-18 mg/dl Creatinine 0.87 0.60-1.40 mg/dl Est Creatinine Clear Calc Drug Dose 128.4 ml/min Estimated GFR () 126.9 Estimated GFR (Non- 109.5 BUN/Creatinine Ratio 5.9 10-20 Random Glucose 99 70-99 mg/dl Calcium Level 8.6 8.5-10.1 mg/dl C-Reactive Protein 6.57 0-0.29 mg/dl
[2016-05-02] MEDS ORDERED: HYDROmorphone INJ 1 MG/ML SYR IV PRN (20:00)
[2016-05-03 00:03] VITALS: BP 126/71; PULSE 80; TEMP 36.8; O2SAT 97
[2016-05-03] MEDS: VANCOMYCIN INJ 1,500 MG in SODIUM CHLORIDE 0.9% 500ML 500 ML IV SCH ×2 (04:12→11:48)
[2016-05-03] MEDS: HYDROmorphone INJ 1 MG/ML SYR IV PRN ×2 (04:13→10:25)
[2016-05-03 07:30] VITALS: BP 128/74; PULSE 75; TEMP 36.6; O2SAT 96
--- NOTE | 2016-05-03 07:39 | Orthopedic Progress Note ---
Orthopedic Progress Note Date of Service May 03, 2016. Subjective Post OP Day: 2 Reports: feeling well, pain controlled w PO medications, Denies: SOB, calf pain , chest pain, complaints, light headedness, nausea / vomiting Objective Date Time Temp Pulse Resp B/P Pulse Ox O2 Delivery O2 Flow Rate FiO2 05/03/16 00:03 36.8 80 18 126/71 97 Room Air 05/03/16 00:01 Room Air 05/02/16 20:00 Room Air 05/02/16 16:00 Room Air 05/02/16 15:26 37.1 76 18 145/82 96 Room Air 05/02/16 08:07 36.8 67 16 130/84 98 2.0 05/02/16 08:00 Room Air Laboratory Results 24 Hours: Test 05/02/16 07:41 Hematocrit 34.9 % Hemoglobin 12.0 g/dL Assessment & Plan Assessment: POD #1 s/p I&D left foot abscess -dressing changed and packing removed today -wound cx's of the left food showing Gram positive cocci- sensitivity to follow -currently on IV Vanco pending sensitivity -ID consulted Discharge Planning Discharge Planning: uncertain
[2016-05-03] MEDS: OXYCODONE/ACETAMINOPHEN 5-325 TAB PO PRN ×3 (07:48→16:05)
[2016-05-03 08:22] LABS: CREATININE 0.83 mg/dl (0.60-1.40)
--- NOTE | 2016-05-03 08:43 | Discharge Instructions ---
Discharge Instructions Admission Reason for Admission: Cellulitis Of Left Foot Discharge Discharge Diagnosis / Problem: FOOT INFECTION Discharge Goals Goal(s): Decrease discomfort, Improve function Activity Recommendations Activity Limitations: per Instructions/Follow-up section Lifting Limitations: no more than 10 pounds, gradually increase as tolerated Exercise/Sports Limitations: gradually increase as tolerated May Resume Sexual Activity: when tolerated Shower/Bathe: keep incision dry Driving or Machine Use: resume 3 days after discharge Weightbearing Status: Left weightbearing (as tolerated) . Instructions / Follow-Up Instructions / Follow-Up KEEP A DRY STERILE DRESSING ON THE FOOT. MAY CHANGE DAILY. DO NOT GET THE INCISION WET. MAY WEIGHT BEAR TOLERATED. CALL [facility] [employer] FOR AN APPT WITH DR AMATO'S PA IN 10-14 DAYS. [phone] Current Hospital Diet Patient's current hospital diet: Regular Diet Discharge Diet Recommended Diet: Regular Diet Procedures Procedures Performed: I and D abscess Pending Studies Studies pending at discharge: no Medical Emergencies . Who to Call and When: Medical Emergencies: If at any time you feel your situation is an emergency, please call 911 immediately. . Non-Emergent Contact Non-Emergency issues call your: Primary Care Provider . "Provider Documentation" section prepared by Eren Chairez. VTE Core Measure Inpt VTE Proph given/why not?: Treatment not indicated (possible procedure)
--- NOTE | 2016-05-03 11:15 | Medical Consult ---
Consultation Date of Consultation: May 03, 2016. Attending Physician: Lexy Smith M.D. Reason for Consultation: Foot abscess History of Present Illness 40-year-old male with previously good health injured his left foot several weeks ago by dropping a heavy pipe on it. Subsequently developed progressively worsening redness and swelling of the foot a variety of emergency room. He was found to have a cellulitis, a CT scan, where we go showed evidence of a significant abscess collection. Has undergone surgical incision and drainage with debridement, and cultures from of processes growing gram-positive cocci. Currently being treated with IV vancomycin which is tolerated without apparent difficulty. Denies any significant fever. Past Medical/Surgical History Medical Problems: (1) Cellulitis of left foot No significant past medical or past surgical history Family History Patient reports no known family medical history. 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) Allergies Coded Allergies: Iodinated Diagnostic Agents (Unverified Allergy, Unknown, PASSES OUT, 05/04) Current Inpatient Medications Current Inpatient Medications Medications (Trade) Dose Ordered Sig/Prieto Route Start Time Stop Time Status Last Admin Dose Admin Acetaminophen (Tylenol Tab) 650 mg Q4H PRN PO 04/30/16 23:00 05/30/16 22:59 Ondansetron HCl (Zofran Inj) 4 mg Q6H PRN IV 04/30/16 23:00 05/30/16 22:59 Polyethylene (Miralax Powder Packet) 17 gm DAILY PRN PO 04/30/16 23:00 05/30/16 22:59 Vancomycin HCl 1 ea 1 ea DAILY PRN N/A 05/01/16 01:04 05/31/16 01:03 Vancomycin HCl/ Sodium Chloride (Vancomycin Inj/ Nss 500ml) 530 ml @ 200 mls/hr Q8H IV 05/02/16 12:00 05/09/16 23:59 05/03/16 04:12 200 MLS/HR Hydromorphone HCl (Dilaudid Inj) 1 mg Q6 PRN IV 05/02/16 20:00 05/16/16 19:59 05/03/16 10:25 1 MG Oxycodone/ Acetaminophen (Percocet 5-325mg Tab) 1 tab Q4H PRN PO 05/02/16 18:00 05/16/16 17:59 05/03/16 07:48 1 TAB Review of Systems All systems were reviewed and are negative except as per HPI Physical Exam Date Time Temp Pulse Resp B/P Pulse Ox O2 Delivery O2 Flow Rate FiO2 05/03/16 08:00 Room Air 05/03/16 07:30 36.6 75 18 128/74 96 Room Air 05/03/16 00:03 36.8 80 18 126/71 97 Room Air 05/03/16 00:01 Room Air 05/02/16 20:00 Room Air 05/02/16 16:00 Room Air 05/02/16 15:26 37.1 76 18 145/82 96 Room Air General Appearance: WD/WN, no apparent distress Head: normocephalic, atraumatic Eyes: normal inspection, EOMI, sclerae normal ENT: normal ENT inspection, hearing grossly normal, pharynx normal Neck: supple, no adenopathy, thyroid normal, trachea midline Respiratory/Chest: chest non-tender, lungs clear, normal breath sounds, no respiratory distress Cardiovascular: regular rate, rhythm, no gallop, no murmur Abdomen/GI: normal bowel sounds, non tender, soft, no organomegaly Back: normal inspection, no CVA tenderness Extremities/Musculoskelatal: no calf tenderness, normal capillary refill Neurologic/Psych: alert, oriented x 3 Skin: normal color, no rash, + pertinent finding (Dressing intact left foot) Lymphatic: no adenopathy Laboratory Results RUN DATE: 05/02/16 [facility] LAB PAGE 1 RUN TIME: 1612 Specimen Inquiry PATIENT: PEEWEELESLIE LOC: [facility]W # : [id number] AGE/SX: 40/M ROOM: [facility] REG : 04/30/[address]: Lexy Smith M.D. : 1975 BED: 1 DIS : STATUS: ADM IN TLOC: SPEC #: [id number] TEMITOPE: 05/01/16-UNK STATUS: RES REQ #: [id number] RECD: 05/01/[address]: Zita Gonzalez DO SOURCE: ABSCESS ENTR: 05/01/[address]: Leslie Buchanan MD [facility]: FOOT LEFT Billy Marks M.D., Sabrina M., DO ORDERED: AER/EMILI CULTSMR Procedure Result Verified Site GRAM STAIN Final 05/02/165388 RESULT MANY WBCs SEEN MANY GRAM POSITIVE COCCI RARE EPITHELIAL CELLS OR AER/EMILI CULT Preliminary 05/02/16-1612 Organism 1 GRAM POSITIVE COCCI QUANITY MODERATE SENS SENSITIVITIES DEPENDENT ON FURTHER IDENTIFICATION Last 24 Hours Test 05/03/16 07:50 Creatinine 0.83 mg/dl Est Creatinine Clear Calc Drug Dose 134.6 ml/min Estimated GFR () 129.4 Estimated GFR (Non- 111.6 Vancomycin Level Trough 32.1 mcg/ml LEFT FOOT MRI HISTORY: Left foot pain and swelling. r/o abscess left foot TECHNIQUE: Multiplanar multisequence MRI of the left foot was performed without the use of contrast. COMPARISON STUDY: Left foot 04/30/2016. FINDINGS: There is a normal marrow signal intensity within the visualized osseous structures of the foot. No fracture or dislocation. No cortical destruction to suggest osteomyelitis. There is subcutaneous edema and skin thickening along the dorsum of the foot extending into the toes. There is also a multiloculated fluid collection along the dorsum of the foot which involves both the subcutaneous and deep soft tissues. This surrounds the majority of the extensor digitorum tendons. This extends from the level of the ankle joint to the level of the heads of the metatarsals. This measures 10 cm in length, 5 cm in width, and 2.5 cm in height. The fluid tracks proximally in the tendon sheaths of the extensor digitorum up into the level of the ankle. The fluid collection is not entirely included on this study. IMPRESSION: 1. A 10 x 5 x 2.5 cm multiloculated fluid collection within the dorsum of the foot with involvement of both the superficial and deep soft tissue components. This surrounds the majority of the extensor digitorum tendons and extends proximally into the tendon sheaths up into the level of the ankle. The proximal component of the fluid collection is not entirely included on this study. This could represent an abscess or hematoma. 2. There is dorsal subcutaneous edema and skin thickening throughout the majority of the foot. 3. No fracture, dislocation, or evidence for osteomyelitis within the foot. Electronically signed by: Pierce Conde M.D. 05/01/2016 11:38 AM Dictated Date/Time: 05/01/2016 11:31 AM The status of this report is Signed. Draft = Not yet reviewed or approved by Radiologist. Signed = Reviewed and approved by Radiologist. <AttendingPhy>Zita Gonzalez DO</AttendingPhy> <FamilyPhy>Billy Marks M.D.</ FamilyPhy> <PrimaryPhy>iBlly Marks M.D.</PrimaryPhy> <UnitNumber>[id number]</ UnitNumber> <VisitNumber>[id number]</VisitNumber> <PatientName>LESLIE VIDES</PatientName> <DateOfBirth>1975</DateOfBirth> <Location>[facility]< /Location> <ServiceDate Assessment & Plan Left foot abscess, suspect Staph (incl. MRSA), but Strep also positive. Feel that patient good candidate for outpatient antibiotics. Will need to continue on coverage that will include MRSA until final ID/sensitivities are available. Recommend daptomycin 4 mg/kg q 24 hour as vancomycin q 8 hours not amenable to outpatient therapy. Will need PICC as well.
[2016-05-03] MEDS ORDERED: VANCOMYCIN TROUGH SCH (11:30)
[2016-05-03] MEDS ORDERED: DAPTOMYCIN CONSULT ACTIVE PRN ×2 (13:45)
[2016-05-03 15:40] VITALS: BP 163/92; PULSE 82; TEMP 36.7; O2SAT 97
[2016-05-03] MEDS ORDERED: DAPTOmycin IV 375 MG in SODIUM CHLORIDE 0.9% 50ML 50 ML IV SCH (16:00)
[2016-05-03 16:18] VITALS: BP 163/92; PULSE 82; TEMP 36.7; O2SAT 97
[2016-05-03] MEDS ORDERED: KETO10TA PO (16:36)
[2016-05-03] MEDS ORDERED: [UNRECOGNIZED DRUG - CODE] IV (16:43)
--- NOTE | 2016-05-03 17:17 | Progress Note ---
Internal Med Progress Note Date of Service: May 03, 2016. Provider Documentation: SUBJECTIVE: no fever or chills left foot pain much improved evaluated by Ortho this AM dressing changes , wound appears to be healing well finished IV Daptomycin will be scheduled at [facility] for out patient antibiotic Delavance IV stable to be discharge home OBJECTIVE: Vital Signs-as noted below Exam: General-no sign of distress Eyes-sclera non icteric ENT-NAD Neck-no thyromegaly Lungs-CTA Heart-regular S1/S2 Abdomen-soft, non tender Extremities-left foot abscess s/P I&D , bandaged Neuro-no focal deficit Lab data as noted below. ASSESSMENT & PLAN: Traumatic Left Foot Injury/Cellulitis and Abscess Collection had a traumatic left foot injury approx 3 weeks back Left Foot MRI : 1. A 10 x 5 x 2.5 cm multiloculated fluid collection within the dorsum of the foot with involvement of both the superficial and deep soft tissue components. This surrounds the majority of the extensor digitorum tendons and extends proximally into the tendon sheaths up into the level of the ankle. The proximal component of the fluid collection is not entirely included on this study. This could represent an abscess or hematoma. 2. There is dorsal subcutaneous edema and skin thickening throughout the majority of the foot. 3. No fracture, dislocation, or evidence for osteomyelitis within the foot. no evidence of sepsis normal white count no fever or chills appreciate ortho input S/p I&D of left foot abscess wound culture of left foot -gram positive cocci -Alpha strep , not enterococcus ID eval requested ,appreciate input recommended PICC line -home IV Abx with Daptomycin for 2 weeks D/w Dr Fischer -pt has hx of IV drug abuse /Narcotic pain medication dependency using IV Dilaudid quite frequently and in appropriately while in hospital sending pt home with [facility]ent[facility] IV Access may not be safe as per Dr Fischer pt can be given 1x dose of IV Daptomycin followed by out pt tx with IV Delavance 1500mg IV X1 tomorrow at [facility] which will complete 2 weeks of course pt given IV daptomycin today IV access removed script given for IV Delavance as out pt treatment ID team will do the pre Auth for the out patient abx treatment tomorrow 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 will have IV infusion scheduled through central scheduling tomorrow at [facility] for IV Delavance once it is approved pt mentions pain in left foot has improved script for PO Toradol sent to Pharmacy no narcotic script given left foot dressing changed earlier by Ortho instruction given for daily dressing change , pt is comfortable with wound care and dressing change Ortho follow up in 1 week pt is asked to follow up with his family physician for wound check FULL CODE DVT PROPHYLAXIS low risk scd and teds ambulate DISPOSITION: discharge home today Vital Signs: Date Time Temp Pulse Resp B/P Pulse Ox O2 Delivery O2 Flow Rate FiO2 05/03/16 16:18 36.7 82 18 97 Room Air 05/03/16 15:40 36.7 82 18 163/92 97 Room Air 05/03/16 08:00 Room Air 05/03/16 07:30 36.6 75 18 128/74 96 Room Air 05/03/16 00:03 36.8 80 18 126/71 97 Room Air 05/03/16 00:01 Room Air 05/02/16 20:00 Room Air Lab Results: Results Past 24 Hours Test 05/03/16 07:50 Range/Units Creatinine 0.83 0.60-1.40 mg/dl Est Creatinine Clear Calc Drug Dose 134.6 ml/min Estimated GFR () 129.4 Estimated GFR (Non- 111.6 Vancomycin Level Trough 32.1 SEE COMMENT mcg/ml
--- NOTE | 2016-05-03 17:44 | Discharge Summary ---
Discharge Summary Date of Service May 03, 2016. Discharge Summary Admission Date: Apr 30, 2016 at 23:00 Discharge Date: May 03, 2016 Discharge Disposition: Home Principal Diagnosis: TRAUMATIC INJURY WITH CELLULITIS AND ABSCESS OF LEFT FOOT Procedures: I & D of left foot abscess by Ortho Consultations: ORTHOPEDICS ID DR FISCHER Medication Reconciliation New Medications: Dalbavancin HCl (Dalvance) 500 Mg Dora 1500 MG IV UD, #1 VIAL one dose at Medical treatment Unit Ketorolac Tromethamine (Toradol) 10 Mg Tab 10 MG PO Q8 PRN for Pain for 10 Days, #30 TAB take with full stomach Discontinued Medications: Ibuprofen (Advil) 200 Mg Tab 200-600 MG PO Q4H, TAB Referrals At Discharge Follow up Referrals: Physician Referral - Within 1-2 Weeks with Dexter Buchanan MD Admission Information HPI (per Admitting provider): 40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 He states there was pain but it wasn't until 10 days later he noticed the pain start to increase with swelling. For the last 10 days his pain and swelling has become extreme and feels to him as though his skin is going to burst. He reports some numbness in his toes for the past 10 days along with redness to the mid calf and even some numbness in his upper thigh intermittently. He has been ambulating with a CAM boot of his son's that he had lying around the house. He does report chills, however, no fevers, chest pain, shortness of breath, headaches, visual changes, nausea, vomiting, diarrhea , or any other symptom at this time. In the ER he received Vancomycin and Morphine as well as some IVF. He was feeling better after the morphine. He reports only OTC Advil use at home for pain. Physical Exam (per Admitting): GEN: WNWD, in slight distress, alert and appropriate HEENT: NC/AT, PERRL, normal sclerae CARDIO: reg rate, S1/2 heard without m/g/r LUNGS: CTA bilaterally, no crackles, rales or wheezes, good diaphragmatic excursion ABD: soft, non-tender, non-distended, no rebound or guarding EXTREMITY: RP and DP palpable 2+ bilat, no LE swelling or edema, extremities are warm and well-perfused LLE: significant swelling present with dorsal focus that is closed but appears possibly fluctuant. This is surrounded by significant redness and desquamation of the tissues. The erythema extends up to the mid-calf and is exquisitely sensitive so exam is limited. I can detect a dorsal pedal pulse with light touch. Sensation is intact. Skin is tense/ tight. Cannot move toes. Can bear weight on LE with CAM boot. LE is very warm to the touch. NEURO: CN 2-12 grossly intact, sensation intact throughout MUSC: 5/5 strength throughout, no focal deficits SKIN: warm and dry and as above. Hospital Course Traumatic Left Foot Injury/Cellulitis and Abscess Collection had a traumatic left foot injury approx 3 weeks back Left Foot MRI : 1. A 10 x 5 x 2.5 cm multiloculated fluid collection within the dorsum of the foot with involvement of both the superficial and deep soft tissue components. This surrounds the majority of the extensor digitorum tendons and extends proximally into the tendon sheaths up into the level of the ankle. The proximal component of the fluid collection is not entirely included on this study. This could represent an abscess or hematoma. 2. There is dorsal subcutaneous edema and skin thickening throughout the majority of the foot. 3. No fracture, dislocation, or evidence for osteomyelitis within the foot. 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 Access may not be safe as per Dr Fischer pt can be given 1x dose of IV Daptomycin followed by out pt tx with IV Delavance 1500mg IV X1 tomorrow at [facility] which will complete 2 weeks of course pt given IV daptomycin today IV access removed script given for IV Delavance as out pt treatment ID team will do the pre Auth for the out patient abx treatment tomorrow 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 will have IV infusion scheduled through central scheduling tomorrow at [facility] for IV Delavance once it is approved pt mentions pain in left foot has improved script for PO Toradol sent to Pharmacy no narcotic script given left foot dressing changed earlier by Ortho instruction given for daily dressing change , pt is comfortable with wound care and dressing change Ortho follow up in 1 week pt is asked to follow up with his family physician for wound check FULL CODE DVT PROPHYLAXIS low risk scd and teds ambulate DISPOSITION: discharge home today Total time spent on discharge = 40 mins This includes examination of the patient, discharge planning, medication reconciliation, and communication with other providers. Discharge Instructions Discharge Instructions Admission Reason for Admission: Cellulitis Of Left Foot Discharge Discharge Diagnosis / Problem: FOOT INFECTION Discharge Goals Goal(s): Decrease discomfort, Improve function Activity Recommendations Activity Limitations: per Instructions/Follow-up section Lifting Limitations: no more than 10 pounds, gradually increase as tolerated Exercise/Sports Limitations: gradually increase as tolerated May Resume Sexual Activity: when tolerated Shower/Bathe: keep incision dry Driving or Machine Use: resume 3 days after discharge Weightbearing Status: Left weightbearing (as tolerated) . Instructions / Follow-Up Instructions / Follow-Up KEEP A DRY STERILE DRESSING ON THE FOOT. MAY CHANGE DAILY. DO NOT GET THE INCISION WET. MAY WEIGHT BEAR TOLERATED. CALL [facility] FOR AN APPT WITH DR BUCHANAN'S PA IN 10-14 DAYS. [phone] Current Hospital Diet Patient's current hospital diet: Regular Diet Discharge Diet Recommended Diet: Regular Diet Procedures Procedures Performed: I and D abscess Pending Studies Studies pending at discharge: no Medical Emergencies . Who to Call and When: Medical Emergencies: If at any time you feel your situation is an emergency, please call 911 immediately. . Non-Emergent Contact Non-Emergency issues call your: Primary Care Provider . "Provider Documentation" section prepared by Eren Chairez. VTE Core Measure Inpt VTE Proph given/why not?: Treatment not indicated (possible procedure) Addendum: Lexy Smith M.D. on 05/03/16 @ 17:05 Discharge Inst - Addendum Addendum Notes: ATTENDING NOTE : Pt left foot wound culture + ve for alpha streptococcus not enterococcus no sensitivity to follow left foot wound dressing changed by Orthopedics this AM appears to be healing well instruction given for daily dressing change and out pt follow up with Orthopedics as per ID -initial recommendation was for PICC line and daily Daptomycin D/w Dr Fischer -updated regarding concern for Narcotic pain meds abuse /addiction sending home with IV site may not be safe ID suggested -pt will be given 1 X dose of IV daptomycin now Dc home today should come in tomorrow to [facility] for IV infusion Dalvance ( dalbavancin ) 1500 mg X1 iv infusion ID team will order for pre auth for the medication Script will be given for IV Dalvance for out pt treatment Ortho follow up in 1-2 weeks pt given instructions for daily wound /dressing changes Addendum Provider: Addendum Notes were documented by provider Lexy Smith. Additional Copies To Dexter Buchanan MD
--- NOTE | 2016-05-03 20:03 | EMERGENCY ROOM VISIT NOTE ---
History First contact with patient: 18:55 Chief Complaint: FOOT PAIN Stated Complaint: CELLULITIS OF LEFT FOOT History of Present Illness The patient is a 40 year old male who presents to the Emergency Department by private vehicle for evaluation of pain and swelling to the LEFT foot. He reports that approximately 3 weeks ago while working in his garage, he dropped a metal pipe on the top of his foot while wearing sandals. He reports immediate pain. He had mild discomfort initially which seemed to resolve. He had been doing well until a few days ago when he developed redness and increasing swelling to the top of the foot. He reports that he now has had worsening pain, redness, swelling. He reports increasing pain with ambulation. He reports some tingling to the toes. He reports pain with range of motion. He rates his current discomfort as a 7/10. The patient denies any history of MRSA infections. He denies any calf pain, chest pain, palpitations, dizziness, light headedness, nausea, or vomiting. The patient is not a diabetic. Review of Systems A complete 10-point Review of Systems was discussed with the patient, with pertinent positives and negatives listed in the History of Present Illness. All remaining Review of Systems questions can be considered negative unless otherwise specified. Past Medical/Surgical History Medical Problems: (1) Cellulitis of left foot Family History Patient reports no known family medical history. 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 GENERAL - 40-year-old male appearing his stated age and in noticeable discomfort throughout the exam. MUSCULOSKELETAL - LEFT foot markedly edematous and erythematous. The erythema encompasses the entire dorsal surface of the foot and the ankle as well as the midcalf in circumferential fashion. Moderately warm to touch. Minimal fluctuance to palpation. No lymphedema streaking. No palpable cords. +3/5 strength appreciated LEFT versus right secondary to patient discomfort. NEUROLOGIC/VASCULAR - Neurovascularly intact distally with +3/5 dorsalis pedis pulses palpated bilaterally. Normal sensation to light and sharp touch appreciated distally. Medical Decision & Procedures ER Provider Diagnostic Interpretation: Radiological imaging and reports were reviewed by myself. Radiologist's Interpretation as follows: ULTRASOUND VENOUS DOPPLER ULTRASOUND LEFT LOWER EXTREMITY CLINICAL HISTORY: Left leg pain and swelling ] REDNESS COMPARISON STUDY: No previous studies for comparison. FINDINGS: Real-time and color flow Doppler imaging were performed. Flow was seen within the femoral, popliteal and calf veins with no intraluminal thrombus demonstrated. The saphenous vein is patent. There are multiple left inguinal lymph nodes visualized, likely reactive. IMPRESSION: No evidence of left lower extremity DVT LEFT FOOT MIN 3 VIEWS ROUTINE CLINICAL HISTORY: pain/swelling/redness COMPARISON: None. DISCUSSION: No fractures or dislocations are visualized. There are no erosive or destructive changes. There is pronounced dorsal soft tissue swelling IMPRESSION: Pronounced dorsal soft tissue swelling. No evidence of fracture. No destructive lesions are visualized. Laboratory Results Test 04/30/16 20:00 04/30/16 21:22 Prothrombin Time 11.0 SECONDS (9.0-12.0) Prothromb Time International Ratio 1.0 (0.9-1.1) Activated Partial Thromboplast Time 31.3 SECONDS (21.0-31.0) Partial Thromboplastin Ratio 1.2 Total Bilirubin 0.3 mg/dl (0.2-1) Aspartate Amino Transf (AST/SGOT) 23 U/L (15-37) Alanine Aminotransferase (ALT/SGPT) 20 U/L (12-78) Alkaline Phosphatase 77 U/L (45-117) Total Protein 8.1 gm/dl (6.4-8.2) Albumin 3.3 gm/dl (3.4-5.0) Globulin 4.8 gm/dl (2.5-4.0) Albumin/Globulin Ratio 0.7 (0.9-2) Bedside Lactic Acid Venous 1.82 mmol/L (0.90-1.70) Medications Administered Medications (Trade) Dose Ordered Sig/Prieto Route Start Time Stop Time Status Last Admin Dose Admin Sodium Chloride (Nss 1000ml) 1,000 ml @ 125 mls/hr Q8H STAT IV 04/30/16 19:20 04/30/16 23:50 DC 04/30/16 20:18 125 MLS/HR Ondansetron HCl (Zofran Inj) 4 mg NOW STAT IV 04/30/16 19:20 04/30/16 19:27 DC 04/30/16 20:18 4 MG Morphine Sulfate 4 mg 4 mg NOW STAT IV 04/30/16 19:20 04/30/16 19:27 DC 04/30/16 20:19 4 MG Vancomycin HCl/ Sodium Chloride (Vancomycin Inj/ Nss 500ml) 544 ml @ 200 mls/hr ONE STAT IV 04/30/16 19:20 04/30/16 22:03 DC 04/30/16 21:19 200 MLS/HR Morphine Sulfate (MoRPHine SULFATE INJ) 4 mg NOW STAT IV 04/30/16 22:20 04/30/16 22:21 DC 04/30/16 22:41 4 MG ED Course Patient was seen and evaluated by myself. Labs were drawn, saline lock in place. Blood cultures were obtained. X-ray of the affected foot and lower extremity were obtained. The patient was hydrated with 1000 mL normal saline bolus. He received 4 mg morphine and 4 mg Zofran intravenously for pain. The patient was treated with IV vancomycin. Laboratory results demonstrate no acute leukocytosis, worrisome anemia, or bandemia. The patient has no significant electrolyte abnormalities. ESR and CRP are elevated. Point-of- care lactic acid is elevated at 1.82. Laboratory results and imaging studies were reviewed with the patient who acknowledges understanding. The patient was treated with an additional 4 mg morphine for pain. I did discuss the case with the on-call [facility] hospitalist who agrees to admit the patient for further evaluation and management. The patient was admitted in stable condition. Medical Decision Given the patient's presentation and exam findings, I did elect to perform the above-mentioned workup. The patient resents today with a cellulitis to the LEFT foot. The cellulitis has developed rapidly. It encompasses proximally 50 % of the lower extremity. The patient is with a low-grade fever. His lactic acid is elevated. There does not appear to be any obstructive lesions at this point. Regardless, the patient requires aggressive antibiotic management and possible surgical intervention. Because of this, the patient was admitted to the hospitalist service for further evaluation and management. The patient was admitted in fair condition. In the evaluation and treatment of this patient, the following differential diagnoses were considered: Osteomyelitis, abscess, Lisfranc Fracture, Talus Fracture, Tarsal Fracture, Foot Sprain. Impression Primary Impression: Cellulitis of left foot Departure Information Dispostion Admitted as an inpatient Condition FAIR Prescriptions Dalbavancin HCl (Dalvance) 500 Mg Dora 1500 MG IV UD, #1 VIAL one dose at Medical treatment Unit Prov: Lexy Smith M.D. 05/03/16 Ketorolac Tromethamine (TORADOL) 10 Mg Tab 10 MG PO Q8 Y for Pain for 10 Days, #30 TAB take with full stomach Prov: Lexy Smith M.D. 05/03/16 Referrals Billy Marks M.D. (PCP) Forms HOME CARE DOCUMENTATION FORM, IMPORTANT VISIT INFORMATION Patient Instructions [facility]
== END 2016-05-03 17:34 | disposition home or self-care (01) | DRG 580 ==
LOC: ENRESERVDT → ENRESERVTM → C.EDB 17:07 → C.MED 23:00 → C.MS4W 05-02 10:04
PROVIDERS: ADMIT Hospitalist; ATTEND Hospitalist
PROC: 0MDT0ZZ Extraction of Left Foot Bursa and Ligament, Open Approach (ICD-10-PCS; principal; 2016-05-01 09:30)
PROC: 0J9R0ZZ Drainage of Left Foot Subcutaneous Tissue and Fascia, Open Approach (ICD-10-PCS; principal; 2016-05-01 09:30)
DX: L03.116 Cellulitis of left lower limb (principal); F11.20 Opioid dependence, uncomplicated; F17.290 Nicotine dependence, other tobacco product, uncomplicated; S99.822A Other specified injuries of left foot, initial encounter; B95.5 Unspecified streptococcus as the cause of diseases classified elsewhere; B95.8 Unspecified staphylococcus as the cause of diseases classified elsewhere; W20.8XXA Other cause of strike by thrown, projected or falling object, initial encounter; Y92.015 Private garage of single-family (private) house as the place of occurrence of the external cause; Y99.8 Other external cause status; Y93.E9 Activity, other interior property and clothing maintenance

== ENCOUNTER → 2016-05-04 | Day surgery (SDC) | payer OTHER ==
[~2016-05-04] VITALS: Ht 175.3 cm; Wt 91.0 kg
[~2016-05-04] MED LIST: DALBAVANCIN IV 1,500 MG in DEXTROSE 5% 250ML 250 ML IV SCH; KETO10TA PO; [UNRECOGNIZED DRUG - CODE] IV
[2016-05-04 11:50] VITALS: BP 149/90; PULSE 67; TEMP 36.6; O2SAT 96; Ht 175.3 cm; Wt 91.0 kg
== END | disposition home or self-care (01) ==
LOC: EDSTATUS 12:30 → C.MTU 12:30
PROVIDERS: ATTEND Hospitalist
DX: L08.89 Other specified local infections of the skin and subcutaneous tissue (principal); B95.5 Unspecified streptococcus as the cause of diseases classified elsewhere; M79.672 Pain in left foot; F17.220 Nicotine dependence, chewing tobacco, uncomplicated